=== PATIENT | female | born 2000 | race Asian ===

== ENCOUNTER 2022-01-30 22:19 | Emergency (ER) | payer OTHER ==
[~2022-01-30] VITALS: Ht 154.9 cm; Wt 64.0 kg
[2022-01-31] MEDS ORDERED: IBUPROFEN 600 MG TAB PO STA (00:07)
[2022-01-31 00:19] VITALS: BP 118/90
[2022-01-31] MEDS ORDERED: IBUPROFEN 600 MG TAB ONE (00:22)
== END 2022-01-31 00:19 | disposition home or self-care (01) ==
LOC: FSED 22:30
DX: S50.01XA Contusion of right elbow, initial encounter (principal); W03.XXXA Other fall on same level due to collision with another person, initial encounter; Y93.61 Activity, american tackle football; Y92.321 Football field as the place of occurrence of the external cause
CPT/HCPCS: 99283